=== PATIENT | male | born 1950 | race Caucasian/White ===

== ENCOUNTER 2016-10-14 14:00 | Outpatient (RCR) | payer OTHER ==
[~2016-10-14 14:00] MED LIST: ASP325T NG; ATOR80TA2 PO; FISH1CAP15 PO; FLAX100031 PO; GLIP10TA13 PO; HCT25T PO; LISI10TA2 PO; MECL-124 PO; METFOR850T PO; ONDA-42 SL; SCOP1PAT TD
== END 2017-01-12 | disposition home or self-care (01) ==
LOC: ONC 14:00
PROVIDERS: ATTEND Radiology Radiation Oncology
DX: C61 Malignant neoplasm of prostate (principal)
CPT/HCPCS: 99214

== ENCOUNTER 2017-02-27 08:47 | Outpatient (RCR) | payer OTHER ==
[2017-02-27 10:25] LABS: CREATININE SERUM 1.27 MG/DL (0.60-1.30)
== END 2017-02-28 | disposition home or self-care (01) ==
LOC: ONC 08:47
PROVIDERS: ATTEND Radiology Radiation Oncology
DX: C61 Malignant neoplasm of prostate (principal)
CPT/HCPCS: 77334; 82565; 84520; 99211

== ENCOUNTER 2017-05-05 12:48 | Outpatient (RCR) | payer OTHER | END 2017-06-02 | disposition home or self-care (01) | LOC: ONC 12:48 | PROVIDERS: ATTEND Radiology Radiation Oncology | DX: Z51.0 Encounter for antineoplastic radiation therapy (principal); C61 Malignant neoplasm of prostate | CPT/HCPCS: 77300; 77301; 77307; 77334; 77336; 77338; 77385 ==

== ENCOUNTER 2017-12-15 14:07 | Outpatient (RCR) | payer OTHER | END 2017-12-29 | disposition home or self-care (01) | LOC: ONC 14:07 | PROVIDERS: ATTEND Radiology Radiation Oncology | DX: C61 Malignant neoplasm of prostate (principal) ==